=== PATIENT | male | born 1995 | race Hispanic/Latino ===

== ENCOUNTER 2021-09-02 11:12 | Emergency (ER) | payer SELFPAY ==
[2021-09-02] MEDS ORDERED: Alum Hydrox/Mag Hydrox/Simeth 30 ML, Lidocaine 2% 15 ML PO ONE ×2 (11:47)
--- NOTE | 2021-09-02 12:58 | EDM.PDOC ---
ED [facility] GENERAL MEDICAL PROBLEM - General Chief Complaint: Chest Pain Stated Complaint: CHEST PAIN Time Seen by Provider: 09/02/21 11:16 Source of Information: Reports: Patient, Family History Limitations: Reports: Language Barrier - History of Present Illness INITIAL COMMENTS - FREE TEXT/NARRATIVE: 26-year-old male presents the emergency department accompanied by his family mem brett with complaints of chest pain. He states that last evening he was eating supper and had 1 shot of alcohol and then developed sudden onset burning noted in his chest. He states that the discomfort has not resolved. Denies any recent fever, chills, nausea, vomiting or diarrhea. He denies any cough or shortness of breath. States that he smokes approximately 1 cigarette/week. Denies any marijuana or illicit drug use. He states he occasionally drinks alcohol socially. Denies any significant past medical history and does not take any prescription medications. - Related Data Allergies Allergy/AdvReac Type Severity Reaction Status Date / Time No Known Allergies Allergy Verified 09/02/21 11:24 Past Medical History - Past Health History Medical/Surgical History: Denies Medical/Surgical History Social & Family History - Family History Family Medical History: No Pertinent Family History - Tobacco Use Tobacco Use Status *Q: Current Every Day Tobacco User Years of Tobacco use: 10 Packs/Tins Daily: 1 - Caffeine Use Caffeine Use: Reports: Soda - Recreational Drug Use Recreational Drug Use: No ED ROS GENERAL - Review of Systems Review Of Systems: Comprehensive ROS is negative, except as noted in HPI. ED EXAM, GENERAL - Physical Exam Exam: See Below Exam Limited By: No Limitations General Appearance: Alert, WD/WN, Anxious Ears: Normal External Exam, Hearing Grossly Normal Nose: Normal Inspection Throat/Mouth: Normal Inspection, Normal Lips, Normal Voice, No Airway Compromise Head: Atraumatic Neck: Normal Inspection Respiratory/Chest: No Respiratory Distress, Lungs Clear, Normal Breath Sounds, No Accessory Muscle Use, Chest Non-Tender Cardiovascular: Normal Peripheral Pulses, Regular Rate, Rhythm, No Edema, No Murmur Peripheral Pulses: 2+: Radial (L), Radial (R) GI/Abdominal: Normal Bowel Sounds, Soft, No Distention, Tender (Epigastric tenderness.) (Male) Exam: Deferred Rectal (Males) Exam: Deferred Back Exam: Normal Inspection Extremities: Normal Inspection Neurological: Alert, Oriented, Normal Cognition Psychiatric: Normal Affect, Normal Mood Skin Exam: Warm, Dry, Intact, Normal Color, No Rash Lymphatic: No Adenopathy #1 Interpretation EKG Date: 09/02/21 Time: 11:18 Rhythm: NSR Rate (Beats/Min): 113 [place]: Normal P-Wave: Present QRS: Normal ST-T: Normal QT: Normal Comparison: NA - No Prior EKG EKG Interpretation Comments: Per Dr. Oswald interpretation: Sinus tachycardia at 113 bpm; decreased T waves diffuse; decreased P waves amplitude Course - Vital Signs Text/Narrative:: As stated above, patient presents with centralized chest discomfort. Described as a burning. Physical exam is essentially unremarkable however patient does have significant amount of tenderness noted to the epigastric area with minimal palpation. Suspect patient has gastritis. However, will obtain a full cardiac work-up to include CBC, CMP, C-reactive protein, magnesium and a troponin level. We will also obtain chest x-ray and an EKG. Patient will be medicated with a GI cocktail to see if this helps resolve the discomfort. Last Recorded V/S: Last Vital Signs Temp 97.8 F 09/02/21 11:23 Pulse 111 H 09/02/21 11:23 Resp 19 09/02/21 11:23 BP 138/89 09/02/21 11:23 Pulse Ox 98 09/02/21 11:23 - Orders/Labs/Meds Orders: Active Orders 24 hr Category Date Time Status Cardiac Monitoring [RC] STAT Care 09/02/21 11:42 Active Communication Order [RC] STAT Care 09/02/21 11:42 Active Chest 1V Frontal [CR] Stat Exams 09/02/21 11:47 Taken BLOOD CULTURE [MREF] Stat Lab 09/02/21 12:55 Received BLOOD CULTURE [MREF] Stat Lab 09/02/21 13:00 Received Blood Culture x2 Reflex Set [OM.PC] Stat Oth 09/02/21 12:40 Ordered Labs: Laboratory Tests 09/02/21 09/02/21 09/02/21 Range/Units 12:14 12:14 12:55 WBC 110.65 H* (4.23-9.07) K/mm3 RBC 3.99 L (4.63-6.08) M/mm3 Hgb 12.2 L (13.7-17.5) gm/dl Hct 36.3 L (40.1-51.0) % MCV 91.0 (79.0-92.2) fl MCH 30.6 (25.7-32.2) pg MCHC 33.6 (32.2-35.5) g/dl RDW Std Deviation 49.2 H (35.1-43.9) fL Plt Count 37 L (163-337) K/mm3 MPV 9.3 L (9.4-12.3) fl Neut % (Auto) Cancelled Lymph % (Auto) Cancelled [place] % (Auto) Cancelled Eos % (Auto) Cancelled Baso % (Auto) Cancelled Neut # (Auto) Cancelled Lymph # (Auto) Cancelled [place] # (Auto) Cancelled Eos # (Auto) Cancelled Baso # (Auto) Cancelled Neutrophils % (Manual) 35 L (40-60) % Band Neutrophils % 17 H (0-10) % Lymphocytes % (Manual) 34 (20-40) % Atypical Lymphs % 0 % Monocytes % (Manual) 12 H (2-10) % Eosinophils % (Manual) 2 (0.8-7.0) % Basophils % (Manual) 0 L (0.2-1.2) Manual Slide Review Cancelled Platelet Estimate Decreased Anisocytosis 1+ slight Microcytosis 1+ slight Target Cells 1+ slight Tear Drop Cells 1+ slight RBC Morph Comment Not Reportable Sodium 140 (136-145) mEq/L Potassium 3.8 (3.5-5.1) mEq/L Chloride 103 (98-107) mEq/L Carbon Dioxide 26 (21-32) mEq/L Anion Gap 14.8 (5-15) BUN 10 (7-18) mg/dL Creatinine 1.4 H (0.7-1.3) mg/dL Est Cr Clr Drug Dosing 86.22 mL/min Estimated GFR (MDRD) > 60 (>60) mL/min BUN/Creatinine Ratio 7.1 L (14-18) Glucose 112 H (70-99) mg/dL Lactic Acid 0.8 (0.4-2.0) mmol/L Calcium 8.5 (8.5-10.1) mg/dL Magnesium 2.3 (1.8-2.4) mg/dL Total Bilirubin 0.7 (0.2-1.0) mg/dL AST 32 (15-37) U/L ALT 52 (16-63) U/L Alkaline Phosphatase 76 (46-116) U/L Troponin I < 0.017 (0.00-0.056) ng/mL C-Reactive Protein 2.2 H* (<1.0) mg/dL Total Protein 8.6 H (6.4-8.2) g/dl Albumin 3.8 (3.4-5.0) g/dl Globulin 4.8 gm/dL Albumin/Globulin Ratio 0.8 L (1-2) Influenza Type A RNA (NEGATIVE) RSV RNA (INAAT) (NEGATIVE) Influenza Type B RNA (NEGATIVE) SARS-CoV-2 RNA (TIMOTHY) (NEGATIVE) 09/02/21 Range/Units 12:56 WBC (4.23-9.07) K/mm3 RBC (4.63-6.08) M/mm3 Hgb (13.7-17.5) gm/dl Hct (40.1-51.0) % MCV (79.0-92.2) fl MCH (25.7-32.2) pg MCHC (32.2-35.5) g/dl RDW Std Deviation (35.1-43.9) fL Plt Count (163-337) K/mm3 MPV (9.4-12.3) fl Neut % (Auto) Lymph % (Auto) [place] % (Auto) Eos % (Auto) Baso % (Auto) Neut # (Auto) Lymph # (Auto) [place] # (Auto) Eos # (Auto) Baso # (Auto) Neutrophils % (Manual) (40-60) % Band Neutrophils % (0-10) % Lymphocytes % (Manual) (20-40) % Atypical Lymphs % % Monocytes % (Manual) (2-10) % Eosinophils % (Manual) (0.8-7.0) % Basophils % (Manual) (0.2-1.2) Manual Slide Review Platelet Estimate Anisocytosis Microcytosis Target Cells Tear Drop Cells RBC Morph Comment Sodium (136-145) mEq/L Potassium (3.5-5.1) mEq/L Chloride (98-107) mEq/L Carbon Dioxide (21-32) mEq/L Anion Gap (5-15) BUN (7-18) mg/dL Creatinine (0.7-1.3) mg/dL Est Cr Clr Drug Dosing mL/min Estimated GFR (MDRD) (>60) mL/min BUN/Creatinine Ratio (14-18) Glucose (70-99) mg/dL Lactic Acid (0.4-2.0) mmol/L Calcium (8.5-10.1) mg/dL Magnesium (1.8-2.4) mg/dL Total Bilirubin (0.2-1.0) mg/dL AST (15-37) U/L ALT (16-63) U/L Alkaline Phosphatase (46-116) U/L Troponin I (0.00-0.056) ng/mL C-Reactive Protein (<1.0) mg/dL Total Protein (6.4-8.2) g/dl Albumin (3.4-5.0) g/dl Globulin gm/dL Albumin/Globulin Ratio (1-2) Influenza Type A RNA Negative (NEGATIVE) RSV RNA (INAAT) Negative (NEGATIVE) Influenza Type B RNA Negative (NEGATIVE) SARS-CoV-2 RNA (TIMOTHY) Negative (NEGATIVE) Meds: Medications Discontinued Medications Generic Name Dose Route Start Last Admin Trade Name Freq PRN Reason Stop Dose Admin Al Hydroxide/Mg Hydroxide 30 0 ml 09/02/21 11:47 09/02/21 12:03 ml/ Lidocaine HCl 15 ml PO 09/02/21 11:48 45 ml ONETIME ONE Administration Pantoprazole Sodium 40 mg 09/02/21 14:06 09/02/21 14:22 Pantoprazole 40 Mg Vial IVPUSH 09/02/21 14:07 40 mg ONETIME ONE Administration - Re-Assessments/Exams Free Text/Narrative Re-Assessment/Exam: 09/02/21 14:00 Hematology reveals a WBC of 110.65, hemoglobin 12.2, hematocrit 36.3, platelet count 37, manual neutrophil percentage 35 [place] bands 17, lymphocytes 34, monocyte 12, eosinophil 2, basophil 0, external cytosis 1+, microcytosis 1+, target cells 1+, teardrop cells 1+ Chemistry reveals a creatinine of 1.4, glucose 112, lactic acid 0.8, magnesium 2.3, troponin less than 0.017, C-reactive protein 2.2, Patient is negative for Covid and influenza Nothing acute is appreciated on portable view of the chest. Formal radiologist report is pending. I do feel this patient needs to be followed up with oncology services. I phoned [facility] in [place] and spoken with the oncologist, , and he agrees to see this patient in transfer. I then spoke to the hospitalist, , and he has accepted care of this patient. Patient will be transferred by ambulance. Patient is still having epigastric discomfort. I have ordered for the patient to receive Protonix 40 mg IV x1 dose. Per discussion of the results with the patient and his family they are requesting that I medicate him for some anxiety as he is quite distraught due to the news. I have ordered for the patient to receive Ativan 0.5 mg IV x1 dose. Departure - Departure Time of Disposition: 14:46 Disposition: DC/Tfer to [facility] 02 Reason for Transfer *Q: Other Condition: Fair Clinical Impression: Thrombocytopenia Leukocytosis, unspecified Qualifiers: Leukocytosis type: unspecified Qualified Code(s): D72.829 - Elevated white blo od cell count, unspecified Referrals: PCP,None [Primary Care Provider] - Forms: ED Department Discharge Sepsis Event Note (ED) - Evaluation Sepsis Screening Result: No Definite Risk - Focused Exam Vital Signs: Vital Signs Temp Pulse Resp BP Pulse Ox 09/02/21 11:23 97.8 F 111 H 19 138/89 98 - My Orders Last 24 Hours: My Active Orders 09/02/21 11:42 Cardiac Monitoring [RC] STAT Communication Order [RC] STAT 09/02/21 11:47 Chest 1V Frontal [CR] Stat 09/02/21 12:40 Blood Culture x2 Reflex Set [OM.PC] Stat 09/02/21 12:55 BLOOD CULTURE [MREF] Stat 09/02/21 13:00 BLOOD CULTURE [MREF] Stat - Assessment/Plan Last 24 Hours: My Active Orders 09/02/21 11:42 Cardiac Monitoring [RC] STAT Communication Order [RC] STAT 09/02/21 11:47 Chest 1V Frontal [CR] Stat 09/02/21 12:40 Blood Culture x2 Reflex Set [OM.PC] Stat 09/02/21 12:55 BLOOD CULTURE [MREF] Stat 09/02/21 13:00 BLOOD CULTURE [MREF] Stat
[2021-09-02 14:06] LABS: CORONAVIRUS COVID-19 NAA NEGATIVE (NEGATIVE)
[2021-09-02] MEDS ORDERED: Pantoprazole 40 MG Vial IVPUSH ONE (14:06)
[2021-09-02] MEDS ORDERED: LORazepam 2 MG/ML SDV IVPUSH ONE (14:42)
--- NOTE | 2021-09-04 14:00 | CR ---
EXAM: XR CHEST 1 VIEW LOCATION: [facility] [employer] DATE/TIME: 09/02/2021 11:49 AM INDICATION: Chest pressure; patient hx: chest pain COMPARISON: None. IMPRESSION: Heart is normal in size. Minimal bibasilar atelectasis. Lungs are otherwise clear. SIGNED BY: Moshe Ram MD 09/04/2021 12:34 PM MEG
== END 2021-09-02 15:20 ==
LOC: JD.ED 11:12
DX: D69.6 Thrombocytopenia, unspecified (principal); D72.829 Elevated white blood cell count, unspecified; Z72.0 Tobacco use; Z20.822 Contact with and (suspected) exposure to COVID-19
CPT/HCPCS: 0241U; 36415; 71045; 80053; 83605; 83735; 84484; 85007; 85027; 86140; 87040; 93005; 96374; 96375; 99285; A9270; C9113; J2060

== ENCOUNTER 2021-12-30 21:43 | Emergency (ER) | payer SELFPAY ==
[2021-12-30] MEDS ORDERED: Ketorolac 15 MG/ML SDV IVPUSH ONE (22:08)
[2021-12-30] MEDS ORDERED: Ondansetron 4 MG/2 ML SDV IVPUSH ONE (22:08)
== END 2021-12-31 01:20 | disposition home or self-care (01) ==
LOC: JD.ED 21:43
DX: R10.11 Right upper quadrant pain (principal); Z79.899 Other long term (current) drug therapy
CPT/HCPCS: 36415; 74176; 80053; 81001; 85025; 96374; 96375; 99284; J1885; J2405

== ENCOUNTER 2022-02-14 14:23 | Emergency (ER) | payer SELFPAY | END 2022-02-14 15:42 | disposition home or self-care (01) | LOC: JD.ED 14:23 | DX: B02.8 Zoster with other complications (principal) | CPT/HCPCS: 99282 ==

== ENCOUNTER 2022-12-23 19:06 | Emergency (ER) | payer SELFPAY ==
[2022-12-23] MEDS ORDERED: Sodium Chloride 0.9% 1,000 ML IV ONE ×2 (19:29→21:13)
[2022-12-23] MEDS ORDERED: Piperacillin/Tazobactam 4.5 GM in Sodium Chloride 0.9% 100 ML IV ONE (19:30)
[2022-12-23] MEDS ORDERED: Iopamidol 612 MG/ML 100 ML Bottle IVPUSH ONE (19:39)
[2022-12-23 20:52] LABS: CORONAVIRUS COVID-19 NAA NEGATIVE (NEGATIVE)
[2022-12-23] MEDS ORDERED: Norepinephrine 4 MG in Dextrose 5% in Water 246 ML IV SCH ×2 (22:00)
[2022-12-23] MEDS ORDERED: Potassium Chloride 10 MEQ in Premix Bag 1 BAG IV ONE (22:05)
[2022-12-23] MEDS ORDERED: Acetaminophen 325 MG Tab PO ONE (22:05)
[2022-12-23] MEDS ORDERED: Sodium Chloride 0.9% 1,000 ML IV SCH (22:45)
[2022-12-23] MEDS ORDERED: Potassium Chloride 20 MEQ Tab.ER PO ONE (22:51)
[2022-12-24] MEDS ORDERED: Potassium Chloride 20 MEQ Tab.ER PO SCH (09:00)
[2022-12-24] MEDS ORDERED: Potassium Chloride 20 MEQ Tab.ER PO ONE (22:51)
== END 2022-12-24 00:30 ==
LOC: JD.ED 19:06
DX: A41.9 Sepsis, unspecified organism (principal); R65.21 Severe sepsis with septic shock; D70.9 Neutropenia, unspecified; R50.81 Fever presenting with conditions classified elsewhere; Z20.822 Contact with and (suspected) exposure to COVID-19
CPT/HCPCS: 0241U; 36415; 71260; 74177; 80053; 83605; 83690; 83735; 84100; 84145; 84484; 85007; 85027; 86850; 86900; 86901; 87040; 87154; 93005; 96361; 96365; 96366; 96367; 96368; 99291; 99292; A9270; J2543; J3480; J3490; J7030; J7060; Q9967; 87077; 87186; 93010